=== PATIENT | female | born 2000 | race Caucasian/White ===

== ENCOUNTER 2022-05-03 10:41 | Outpatient (REF) | payer OTHER, SELFPAY ==
[2022-05-06 08:09] LABS: HBS Num1 0.07 mIU/mL (0-7.99); ~Hepatitis B Surface Antibody NONREACTIVE (Nonreactive)
[2022-05-07 15:21] LABS: TS Negative Control Passed; TS Panel A 0; TS Panel B 1; TS Positive Control Passed; TSpotTB Negative (Negative)
== END 2022-05-03 10:42 | disposition home or self-care (01) ==
LOC: HO.MANLDS 10:41
PROVIDERS: Visit Provider Physician Assistant
DX: Z11.1 Encounter for screening for respiratory tuberculosis (principal); Z01.84 Encounter for antibody response examination
CPT/HCPCS: 36415; 86481; 86706

== ENCOUNTER 2022-06-21 11:40 | Outpatient (REF) | payer OTHER, SELFPAY ==
[2022-06-24 04:40] LABS: HBS Num1 41.92 mIU/mL (0-7.99); ~Hepatitis B Surface Antibody REACTIVE (Nonreactive)
== END 2022-06-21 11:41 | disposition home or self-care (01) ==
LOC: HO.MANLDS 11:40
PROVIDERS: Visit Provider Physician Assistant
DX: Z11.1 Encounter for screening for respiratory tuberculosis (principal); Z23 Encounter for immunization
CPT/HCPCS: 36415; 86706

== ENCOUNTER 2023-04-04 10:59 | Outpatient (REF) | payer OTHER, SELFPAY ==
[2023-04-07 09:39] LABS: TS Negative Control Passed; TS Panel A 0; TS Panel B 1; TS Positive Control Passed; TSpotTB Negative (Negative)
== END 2023-04-04 11:00 | disposition home or self-care (01) ==
LOC: HO.MANLDS 10:59
PROVIDERS: Visit Provider Physician Assistant
DX: Z11.1 Encounter for screening for respiratory tuberculosis (principal)
CPT/HCPCS: 36415; 86481